=== PATIENT | male | born 1945 | race Caucasian/White ===

== ENCOUNTER 2021-07-15 21:22 | Emergency (ER) | payer MEDICARE, OTHER ==
[~2021-07-15] VITALS: Ht 172.7 cm; Wt 60.5 kg
[2021-07-15 22:08] LABS: CLARITY,URINE CLOUDY (Clear); COLOR,URINE YELLOW (Yellow); GLUCOSE, URINE NEGATIVE (Neg); KETONES,URINE NEGATIVE (Neg); LEUKOCYTE ESTERASE ,URINE MODERATE (Neg); NITRITES, URINE NEGATIVE (Neg); OCCULT BLOOD,URINE TRACE-INTACT (Neg); PROTEIN,URINE NEGATIVE (Neg); UROBILINOGEN,URINE 0.2 E.U/dL (0.2-1.0)
[2021-07-15 22:14] LABS: UA COLLECTION TYPE OTHER
[2021-07-15 22:15] LABS: BACTERIA,URINE FEW /HPF (Neg); SQUAMOUS EPITHELIAL CELL,UR FEW /LPF (FEW); WBC CLUMPS,URINE FEW /HPF (NEGATIVE); WBC,URINE 50-100 /HPF (0-4)
[2021-07-15] MEDS ORDERED: cephalexin 250mg capsule PO ONE (23:40)
[2021-07-15] MEDS ORDERED: CEPH-585 PO (23:41)
[2021-07-16 01:08] VITALS: BP 123/63
== END 2021-07-16 03:29 | disposition home or self-care (01) ==
LOC: ER 21:23
DX: N39.0 Urinary tract infection, site not specified (principal); R33.9 Retention of urine, unspecified; Z87.81 Personal history of (healed) traumatic fracture; Z79.2 Long term (current) use of antibiotics
CPT/HCPCS: 51702; 81001; 99283; 99285